=== PATIENT | male | born 1990 | race Caucasian/White ===

== ENCOUNTER 2018-06-30 07:41 | Outpatient (CLI) | payer OTHER ==
[2018-06-30 08:03] LABS: URINE SOURCE RANDOM
[2018-06-30 08:33] LABS: % BASOPHILS 0.3 % (0.0-2.0); % EOSINOPHILS 2.4 % (0.0-5.0); % LYMPHOCYTES 36.5 % (20.0-50.0); % MONOCYTES 7.2 % (2.0-10.0); % NEUTROPHILS 53.6 % (40.0-80.0); EOSINOPHILE ABSOLUTE 0.2 Th/cmm (0.1-0.4); HEMATOCRIT 48.9 % (41.0-60); HEMOGLOBIN 16.2 gm/dL (12-16); LYMPHOCYTE ABSOLUTE 2.3 Th/cmm (1.5-3.0); MEAN CELL VOLUME 76.3 fl (80-99); MEAN CORPUSCULAR HEMOGLOBIN 25.3 pg (26.0-30.0); MEAN CORPUSCULAR HGB CONC 33.1 pg (28.0-36.0); MEAN PLATELET VOLUME 7.8 fl; MONOCYTE ABSOLUTE 0.5 Th/cmm (0.3-1.0); NEUTROPHILE ABSOLUTE 3.3 Th/cmm (1.8-8.0); PLATELET COUNT 337 Th/cmm (150-400); RED BLOOD COUNT 6.41 Mil/cmm (4.30-5.70); RED CELL DISTRIBUTION WIDTH 12.6 % (11.5-20.0); WHITE BLOOD COUNT 6.3 Th/cmm (4.8-10.8)
[2018-06-30 08:35] LABS: URINE BILIRUBIN NEGATIVE (NEGATIVE); URINE BLOOD NEGATIVE (NEGATIVE); URINE GLUCOSE (UA) NEGATIVE (NEGATIVE); URINE KETONE NEGATIVE (NEGATIVE); URINE LEUKOCYTE ESTERASE NEGATIVE (NEGATIVE); URINE NITRATE NEGATIVE (NEGATIVE); URINE PROTEIN NEGATIVE (NEGATIVE); URINE UROBILINOGEN 0.2 E.U./dL (0.2 - 1.0)
[2018-06-30 08:39] LABS: URINE CLARITY CLEAR (CLEAR); URINE COLOR YELLOW
[2018-06-30 08:40] LABS: URINE MICROSCOPIC INDICATED? YES
[2018-06-30 08:42] LABS: URINE BACTERIA NONE SEEN /hpf (NONE SEEN); URINE EPITHELIAL CELLS RARE /lpf (FEW); URINE RBC NONE SEEN /hpf (0-5); URINE WBC NONE SEEN /hpf (0-5)
[2018-06-30 08:45] LABS: ALB/GLOB RATIO 1.4 (1.0-1.8); ALBUMIN 4.6 gm/dL (4.2-5.5); ALKALINE PHOSPHATASE 81 U/L (34-104); ANION GAP 12.3 (7.0-16.0); BILIRUBIN,TOTAL 0.5 mg/dL (0.3-1.0); BUN - UREA NITROGEN 14 mg/dL (7-25); CALCIUM SERUM 9.7 mg/dL (8.6-10.3); CARBON DIOXIDE 28.6 mEq/L (21.0-31.0); CHLORIDE 102 mEq/L (98-107); CHOLESTEROL 253 mg/dL (<200); CREATININE - SERUM 0.9 mg/dL (0.7-1.3); GFR AFRICAN-AMERICAN > 60.0 ml/min (>90); GFR NON AFRICAN-AMERICAN > 60.0 ml/min; GLUCOSE 102 mg/dL (70-105); HDL -HIGH DENSITY LIPOPROTEIN 50 mg/dL (23-92); POTASSIUM SERUM 3.9 mEq/L (3.5-5.1); SGOT 20 U/L (13-39); SGPT/ALT 27 U/L (7-52); SODIUM SERUM 139 mEq/L (136-145); TOTAL PROTEIN,SERUM 7.9 gm/dL (6.0-8.3); TRIGLYCERIDES 192 mg/dL (<150)
[2018-07-02 04:10] LABS: CHLAMYDIA DNA SDA PROBETEC Negative (Negative); HEP A AB IGM Negative (Negative); HEP B CORE IGM Negative (Negative); HEP B SURFACE AG QL Negative (Negative); HEP C ANTIBODY <0.1 s/co ratio (0.0-0.9)
== END 2018-06-30 08:00 | disposition home or self-care (01) ==
LOC: EEVIPCON → LAB 07:41
PROVIDERS: ATTEND Family Medicine
DX: Z00.00 Encounter for general adult medical examination without abnormal findings (principal)
CPT/HCPCS: 36415-UA; 80053-TC; 80061-TC; 80074-90; 81001-TC; 83036-90; 84443-TC; 85025-TC; 86592-TC; 86695-90; 86703-TC; 87491-90